=== PATIENT | female | born 1965 | race African-American/Black ===

== ENCOUNTER 2020-12-26 19:40 | Emergency (ER) | payer MEDICAID, OTHER ==
[~2020-12-26] VITALS: Ht 154.9 cm; Wt 65.0 kg
[2020-12-26] MEDS ORDERED: BACITRACIN ZINC OINT UDPKT TOP ONE (21:15)
[2020-12-26] MEDS ORDERED: LIDOCAINE HCL/PF 1% 10 MG/ML 5ML VIAL IJ ONE (21:15)
[2020-12-26 21:22] VITALS: BP 153/96
[2020-12-26] MEDS ORDERED: SODIUM CHLORIDE 0.9% 1,000 ML IV ONE (21:45)
[2020-12-26 21:54] LABS: BASOPHILS % 1.1 % (0.0-2.0); EOSINOPHILS % 1.6 % (0.0-5.0); HEMATOCRIT. 39.4 % (36.0-48.0); HEMOGLOBIN. 13.7 g/dL (12.0-16.0); LYMPHOCYTES % 33.7 % (20.0-50.0); MEAN CORPUSCULAR HEMOGLOBIN 30.7 pg (28.0-32.0); MEAN CORPUSCULAR VOLUME 88.7 fL (81.0-99.0); MEAN PLATELET VOLUME 8.9 fl (7.4-10.4); MONOCYTES % 7.3 % (2.0-8.0); NEUTROPHILS % 56.3 % (40.0-76.0); PLATELET 293 x1000/uL (130-400); RED BLOOD CELL COUNT 4.45 mill/uL (4.2-5.4); RED CELL DISTRIBUTION WIDTH 14.5 % (11.6-14.6)
[2020-12-26 22:02] LABS: CHLORIDE 113 mEq/L (98-107)
[2020-12-26 22:05] LABS: ETHANOL BLOOD 297 mg/dL
[2020-12-27] MEDS ORDERED: ACETAMINOPHEN 325MG TABLET PO ONE (01:45)
== END 2020-12-27 03:00 | disposition home or self-care (01) ==
LOC: ER 19:40
DX: S01.511A Laceration without foreign body of lip, initial encounter (principal); S80.211A Abrasion, right knee, initial encounter; S60.312A Abrasion of left thumb, initial encounter; F10.129 Alcohol abuse with intoxication, unspecified; Y90.8 Blood alcohol level of 240 mg/100 ml or more; Z98.1 Arthrodesis status; Z88.5 Allergy status to narcotic agent; Z88.6 Allergy status to analgesic agent; W01.0XXA Fall on same level from slipping, tripping and stumbling without subsequent striking against object, initial encounter; Y93.89 Activity, other specified; Y92.028 Other place in mobile home as the place of occurrence of the external cause
CPT/HCPCS: 36415; 70450; 72125; 73130; 73560; 80048; 80320; 85025; 93005; 96360; 96361; 99285; J3490; J7030; Z7610; G0480

== ENCOUNTER 2021-01-01 08:14 | Emergency (ER) | payer MEDICAID ==
[~2021-01-01] VITALS: Ht 165.1 cm; Wt 66.0 kg
[2021-01-01 09:00] VITALS: BP 130/80
== END 2021-01-01 09:05 | disposition home or self-care (01) ==
LOC: ER 08:14
DX: Z48.02 Encounter for removal of sutures (principal)
CPT/HCPCS: 99281

== ENCOUNTER 2025-07-12 14:20 | Emergency (ER) | payer MEDICAID ==
[~2025-07-12] VITALS: Ht 157.5 cm; Wt 69.0 kg
[2025-07-12 14:22] VITALS: O2SAT 99
[2025-07-12] MEDS: LIDOCAINE HCL 1% 20ML VIAL INFIL ONE (15:28)
[2025-07-12] MEDS: ACETAMINOPHEN 325MG TABLET PO ONE (15:29)
[2025-07-12] MEDS ORDERED: ACET-2708 PO (16:56)
[2025-07-12] MEDS: TETANUS, DIPHTHERIA, PERTUSSIS VAC/PF 0.5ML (>10YR OLD) IM ONE (17:18)
[2025-07-12 17:30] VITALS: BP 137/78; PULSE 84; RESP 18; TEMP 36.6; O2SAT 100
== END 2025-07-12 17:31 | disposition home or self-care (01) ==
LOC: ER 14:32
DX: S01.81XA Laceration without foreign body of other part of head, initial encounter (principal); S09.90XA Unspecified injury of head, initial encounter; Z98.890 Other specified postprocedural states; Z88.5 Allergy status to narcotic agent; Z88.6 Allergy status to analgesic agent; W01.10XA Fall on same level from slipping, tripping and stumbling with subsequent striking against unspecified object, initial encounter; Y93.89 Activity, other specified; Y92.89 Other specified places as the place of occurrence of the external cause; Y99.8 Other external cause status
CPT/HCPCS: 99285; 70450; 90715; 90471; J2003